=== PATIENT | male | born 1980 | race Caucasian/White ===

== ENCOUNTER 2023-01-14 05:05 | Emergency (ER) | payer OTHER ==
[~2023-01-14] VITALS: Ht 190.5 cm; Wt 125.5 kg
[2023-01-14] MEDS ORDERED: BICILLIN L-A 2,400,000 UNIT/4 ML SYRINGE (PENICILLIN G BENZATINE) IM ONE (06:40)
[2023-01-14 06:59] VITALS: BP 122/74
== END 2023-01-14 07:11 | disposition home or self-care (01) ==
LOC: M ED 05:05
DX: J02.0 Streptococcal pharyngitis (principal)
CPT/HCPCS: 87880; 96372; 99283; J0561

== ENCOUNTER → 2023-12-19 | Outpatient (CLI) | payer OTHER | LOC: M RAD 14:02 | PROVIDERS: ATTEND Technician, Other | DX: I87.2 Venous insufficiency (chronic) (peripheral) (principal) ==